=== PATIENT | female | born 1990 | race Caucasian/White ===

== ENCOUNTER 2018-02-02 14:19 | Emergency (ER) | payer BC ==
[~2018-02-02] VITALS: Ht 170.1 cm; Wt 63.5 kg
[2018-02-02] MEDS ORDERED: CLINDAMYCIN HC300 MG PO (14:49)
[2018-02-02] MEDS ORDERED: Motrin,Rufen800 MG PO (14:51)
== END 2018-02-02 15:06 | disposition home or self-care (01) ==
LOC: ED 14:19
DX: S30.860A Insect bite (nonvenomous) of lower back and pelvis, initial encounter (principal); Z88.0 Allergy status to penicillin; Z88.6 Allergy status to analgesic agent; Z88.5 Allergy status to narcotic agent; W57.XXXA Bitten or stung by nonvenomous insect and other nonvenomous arthropods, initial encounter; Y93.89 Activity, other specified; Y92.89 Other specified places as the place of occurrence of the external cause; Y99.9 Unspecified external cause status